=== PATIENT | female | born 1940 | race Caucasian/White ===

== ENCOUNTER 2018-10-03 20:39 | Emergency (ER) | payer MEDICARE, OTHER ==
[2018-10-03 20:52] VITALS: BP 166/69; PULSE 77
[2018-10-03] MEDS ORDERED: Take Home: Codeine/Promethazine 10-6.25 MG/5 ML Syrup 5 ML, 2 Cup Pack PO ONE (21:17)
[2018-10-03] MEDS ORDERED: Take Home: Doxycycline 100 MG Tab, 4 Tab Pack PO ONE (21:17)
--- NOTE | 2018-10-04 06:57 | EDM.PDOC ---
ED HPI GENERAL MEDICAL PROBLEM - General Chief Complaint: Respiratory Problem Stated Complaint: COUGH Time Seen by Provider: 10/03/18 20:49 Source of Information: Reports: Patient History Limitations: Reports: No Limitations - History of Present Illness INITIAL COMMENTS - FREE TEXT/NARRATIVE: Pt. presents to ER with complaints of cough for 7-10 days. She has been seen in the clinic for this. She states that she is occasionally expectorating yellowish phlegm. Denies any fever or chills. She states that her cough has gotten worse in the past several days. She has been unable to sleep. Pt. states that she has been taking OTC cough medicine with minimal improvement. Denies any shortness of breath. No chest pain. No jaw, arm, neck or back pain. Onset: Today Onset Date: 09/26/18 Location: Reports: Chest - Related Data Allergies Allergy/AdvReac Type Severity Reaction Status Date / Time aspirin Allergy Hives Verified 10/03/18 20:47 ibuprofen Allergy Itching Verified 10/03/18 20:47 latex Allergy Other Verified 10/03/18 20:47 Penicillins Allergy Rash Verified 10/03/18 20:47 Sulfa (Sulfonamide Allergy Rash Verified 10/03/18 20:47 Antibiotics) Home Meds: Home Meds Acetaminophen 325 mg PO Q4H PRN 10/06/15 [History] Acetaminophen [Tylenol Arthritis] 650 mg PO Q8H PRN 10/06/15 [History] Cholecalciferol (Vitamin D3) [Vitamin D3] 1,000 unit PO DAILY 10/06/15 [History] Losartan/Hydrochlorothiazide [Hyzaar 100-25 Tablet] 1 each PO DAILY 10/06/15 [ History] Multivitamin [Daily Multiple Vitamin] 1 tab PO DAILY 10/06/15 [History] Sertraline [Zoloft] 75 mg PO DAILY 10/06/15 [History] atorvaSTATin [Lipitor] 20 mg PO BEDTIME 10/06/15 [History] predniSONE [Prednisone] 2.5 mg PO DAILY 10/06/15 [History] traZODone HCl [Trazodone HCl] 100 mg PO BEDTIME 10/06/15 [History] Past Medical History HEENT History: Reports: Cataract, Glaucoma Other HEENT History: DRY EYE. PRESBYOPIA. POSTERIOR VITREOUS DETACHMENT. PSEUDOPHAKIA-BOTH. BLEPHARITIS Cardiovascular History: Reports: High Cholesterol, Hypertension Respiratory History: Reports: Asthma, Sleep Apnea Other Respiratory History: PULMONARY NODULE Gastrointestinal History: Reports: Colon Polyp Other Genitourinary History: KIDNEY CYSTS Musculoskeletal History: Reports: Osteoarthritis Other Musculoskeletal History: C6 RADICULOPATHY. OSTEOPENIA. polymyalgia rheumatica Neurological History: Reports: None Psychiatric History: Reports: Anxiety Other Psychiatric History: INSOMNIA Endocrine/Metabolic History: Reports: None Hematologic History: Reports: None Immunologic History: Reports: None Oncologic (Cancer) History: Reports: Basal Cell Carcinoma Other Oncologic History: MELANOMA OF TRUNK Other Dermatologic History: ACTINIC KERATOSIS. DERMATOCHALASIA (BAGGY SKIN AROUND EYES) - Past Surgical History Head Surgeries/Procedures: Reports: None HEENT Surgical History: Reports: Cataract Surgery Female Surgical History: Reports: Hysterectomy Neurological Surgical History: Reports: Laminectomy Musculoskeletal Surgical History: Reports: Joint Replacement, Knee Replacement Social & Family History - Tobacco Use Smoking Status *Q: Never Smoker ED ROS GENERAL - Review of Systems Review Of Systems: See Below Constitutional: Reports: No Symptoms HEENT: Reports: No Symptoms Respiratory: Reports: Cough, Sputum. Denies: Shortness of Breath, Wheezing Cardiovascular: Reports: No Symptoms Endocrine: Reports: No Symptoms GI/Abdominal: Reports: No Symptoms : Reports: No Symptoms Musculoskeletal: Reports: No Symptoms Skin: Reports: No Symptoms Neurological: Reports: No Symptoms Psychiatric: Reports: No Symptoms Hematologic/Lymphatic: Reports: No Symptoms Immunologic: Reports: No Symptoms ED EXAM, GENERAL - Physical Exam Exam: See Below Exam Limited By: No Limitations General Appearance: Alert, WD/WN, No Apparent Distress Nose: Normal Inspection, Normal Mucosa, No Blood Throat/Mouth: Normal Inspection, Normal Lips, Normal Teeth, Normal Gums, Normal Oropharynx, Normal Voice, No Airway Compromise Head: Atraumatic, Normocephalic Neck: Normal Inspection, Supple, Non-Tender, Full Range of Motion Respiratory/Chest: No Respiratory Distress, Decreased Breath Sounds, Crackles, Rhonchi Cardiovascular: Normal Peripheral Pulses, Regular Rate, Rhythm, No Edema, No Murmur, No Rub Peripheral Pulses: 4+: Radial (L) GI/Abdominal: Normal Bowel Sounds, Soft, Non-Tender, No Organomegaly, No Distention, No Mass (Female) Exam: Deferred Rectal (Female) Exam: Deferred Back Exam: Normal Inspection, Full Range of Motion Extremities: Normal Inspection, Normal Range of Motion, Non-Tender, No Pedal Edema, Normal Capillary Refill Neurological: Alert, Oriented, CN II-XII Intact, Normal Cognition, Normal Gait, Normal Reflexes, No Motor/Sensory Deficits Psychiatric: Normal Affect, Normal Mood Skin Exam: Warm, Dry, Intact, Normal Color, No Rash Course - Vital Signs Last Recorded V/S: Last Vital Signs Temp 36.0 C 10/03/18 20:43 Pulse 77 10/03/18 20:43 Resp 18 10/03/18 20:43 BP 166/69 H 10/03/18 20:43 Pulse Ox 99 10/03/18 20:43 - Orders/Labs/Meds Orders: Active Orders 24 hr Category Date Time Status Chest 2V [CR] Stat Exams 10/03/18 20:52 Taken Meds: Medications Discontinued Medications Generic Name Dose Route Start Last Admin Trade Name Adamq PRN Reason Stop Dose Admin Doxycycline Monohydrate 1 packet 10/03/18 21:17 10/03/18 21:22 Take Home: Doxycycline 100 Mg, 4 Tab Pack PO 10/03/18 21:18 1 packet ONETIME ONE Administration Promethazine HCl/Codeine 1 packet 10/03/18 21:17 10/03/18 21:22 Take Home: Codeine/Prometh 10-6.25 Mg, 2 Pack PO 10/03/18 21:18 1 packet ONETIME ONE Administration Departure - Departure Time of Disposition: 21:32 Disposition: Home, Self-Care 01 Clinical Impression: Bronchitis - Discharge Information Instructions: Acute Bronchitis, Adult Referrals: Sho Freedman, [Primary Care Provider] - Forms: ED Department Discharge Additional Instructions: Doxycycline 100mg 1 twice daily for 10 days Make sure you finish entire course of antibiotics promethazine with codeine 6.25mg/10mg per 5 ml 1 tsp (5 ml) every 4-6 hours as needed for cough Drink plenty of fluids Tylenol as needed for discomfort/fever recheck in clinic in 10-14 days - My Orders Last 24 Hours: My Active Orders 10/03/18 20:52 Chest 2V [CR] Stat - Assessment/Plan Last 24 Hours: My Active Orders 10/03/18 20:52 Chest 2V [CR] Stat Plan: Doxycycline 100mg 1 twice daily for 10 days Make sure you finish entire course of antibiotics promethazine with codeine 6.25mg/10mg per 5 ml 1 tsp (5 ml) every 4-6 hours as needed for cough Drink plenty of fluids Tylenol as needed for discomfort/fever recheck in clinic in 10-14 days
--- NOTE | 2018-10-04 07:48 | CR ---
[id number] RAD/RAD Chest PA And Lateral EXAM: RAD Chest PA And Lateral INDICATION: COUGH, CHEST CONGESTION. COMPARISON: None. DISCUSSION: Cardiomediastinal silhouette is normal in size and contour. Atherosclerotic calcifications of the aortic knob. No infiltrate, effusion, pneumothorax, or edema. Pulmonary hyperinflation. IMPRESSION: No acute cardiopulmonary abnormality. Oneil Yung DO 10/04/18 0747 Thank you for allowing us to participate in the care of your patient.
== END 2018-10-03 21:32 | disposition home or self-care (01) ==
LOC: VM.ED 20:39
DX: J40 Bronchitis, not specified as acute or chronic (principal); E78.00 Pure hypercholesterolemia, unspecified; I10 Essential (primary) hypertension; F41.9 Anxiety disorder, unspecified; Z88.6 Allergy status to analgesic agent; Z91.040 Latex allergy status; Z88.0 Allergy status to penicillin; Z88.2 Allergy status to sulfonamides; Z79.899 Other long term (current) drug therapy
CPT/HCPCS: 71046; 99283; A9270